=== PATIENT | male | born 1945 | race Caucasian/White ===

== ENCOUNTER 2022-08-25 16:03 | Outpatient (REF) | payer BC, MEDICARE, SELFPAY ==
--- NOTE | ~2022-08-25 | XR_ITS ---
EXAMINATION: XR CHEST CLINICAL INFORMATION: Pneumonia. COMPARISON: December 24, 2021. TECHNIQUE: 2 views of the chest were obtained. FINDINGS: No significant abnormality is noted involving the heart, lungs, mediastinum, or soft tissues. Mild degenerative changes of the spine. XR/XR chest 2V IMPRESSION: Unremarkable examination.
== END 2022-08-25 16:04 | disposition home or self-care (01) ==
LOC: HO.HMGCX 16:03
PROVIDERS: Visit Provider Internal Medicine
DX: J18.9 Pneumonia, unspecified organism (principal)
CPT/HCPCS: 71046